=== PATIENT | male | born 2000 | race Two or more races ===

== ENCOUNTER 2024-09-29 18:10 | Emergency (ER) | payer SELFPAY ==
[2024-09-29 18:21] VITALS: BP 115/72; PULSE 94; RESP 18; TEMP 36.5; O2SAT 98
--- NOTE | 2024-09-29 18:42 | XR_ITS ---
Examination: CT abdomen and pelvis without contrast. Coronal 3-D reconstructions. Sagittal 2-D reconstructions. Date and time of exam:September 29, 2024 1850 hours INDICATIONS: Flank pain with right-sided abdominal pain beginning today CTDI: vol (mGy): 5.83 DLP: (mGycm): 309 Technique: Axial images of the abdomen have been obtained, 3 mm slice thickness Intravenous contrast material has not been administered. Low dose protocols were performed. One or more of the following dose reduction techniques were used; automated exposure control, adjustment of the mA and/or KV according to patient size, use of iterative reconstruction technique. Findings: No focal liver or splenic lesions Numerous bilateral renal calculi ranging in size from 2 to 4 mm Minimal left hydronephrosis secondary to 3 mm distal left ureterovesical junction calculus Aorta normal size Contracted gallbladder No pancreatic mass No ascites No bowel obstruction Normal appendix No diverticulitis No prostatomegaly Contracted urinary bladder with minimal urinary bladder wall thickening IMPRESSION: Bilateral renal calculi Minimal left hydronephrosis secondary to 3 mm distal left ureterovesical junction calculus
--- NOTE | 2024-09-29 18:43 | EDRME_ITS ---
Rapid Medical Screening Exam [facility] Arrival date/time: 09/29/24 18:10 24M with no significant PMH presents to ED with 1 day of L flank pain that radiates toward groin, but denies N/V. Possible dysuria. Chief Complaint: Abdominal Pain Vital signs: Vital Signs Temperature 97.7 F 09/29/24 18:21 Pulse Rate 94 09/29/24 18:21 Respiratory Rate 18 09/29/24 18:21 Blood Pressure 115/72 09/29/24 18:21 Pulse Oximetry (%) 98 09/29/24 18:21 Oxygen Delivery Method Room Air 09/29/24 18:21
[2024-09-29 19:10] LABS: Collection Type, Urine Clean Catch; Squamous Epithelial Cell,Urine 0 /hpf (0-5)
[2024-09-29 19:11] LABS: Basophils # (Auto) 0.0 Thou/mm3 (0.0-0.2); Basophils % (Auto) 0 % (0-2.5); Eosinophils # (Auto) 0.0 Thou/mm3 (0.0-0.5); Eosinophils % (Auto) 1 % (0-10); Hematocrit 37.7 % (41.0-53.0); Hemoglobin 12.4 g/dL (13.5-16.0); Immature Granulocytes Auto 0.02 Thou/mm3 (0.00-0.00); Lymphocytes # (Auto) 2.1 Thou/mm3 (1.0-4.8); Lymphocytes % (Auto) 30 % (10-50); Mean Corpuscular HGB Conc 32.9 g/dl (31.0-37.0); Mean Corpuscular Hemoglobin 26.1 pg (25.0-35.0); Mean Corpuscular Volume 79 fL (80-100); Monocytes # (Auto) 0.6 Thou/mm3 (0.0-0.8); Monocytes % (Auto) 9 % (0-12); Neutrophils # (Auto) 4.0 Thou/mm3 (1.8-7.7); Neutrophils % (Auto) 60 % (37-80); Nucleated Red Blood Cell # 0.00 Thou/mm3 (0.00-0.00); Nucleated Red Blood Cell % 0 /100 WBC (0); Platelet Count 194 Thou/mm3 (140-440); RDW Standard Deviation 37.3 fL (35.1-43.9); Red Blood Count 4.75 Miln/mm3 (4.50-5.90); White Blood Count 6.8 Thou/mm3 (3.8-10.6)
[2024-09-29 19:15] LABS: Bacteria,Urine Rare; Bilirubin,Urine Negative (Negative); Blood,Urine 2+ (Negative); Clarity,Urine Clear (Clear/Hazy); Color,Urine Lt-Yellow (Lt Yel-Yel); Culture Indicated,Urine Not Indicated; Glucose, Urine Trace (Negative); Ketones,Urine Negative (Negative); Leukocyte Esterase,Urine Negative (Negative); Nitrite,Urine Negative (Negative); PH,Urine 7.5 (5.0-7.0); Protein,Urine Trace (Neg - Trace); RBC,Urine 177 /hpf (0-3); Specific Gravity,Urine 1.022 (1.001-1.035); Urobilinogen,Urine Negative mg/dL (0.0-1.0); WBC,Urine 2 /hpf (0-5)
[2024-09-29 19:37] LABS: Alanine Aminotransferase 10 U/L (10-49); Albumin, Serum 4.4 gm/dL (3.5-5.0); Albumin/Globulin Ratio 1.9 (1.2-2.2); Alkaline Phosphatase 70 U/L (46-116); Anion Gap 11 (7-16); Aspartate Amino Transferase 18 U/L (0-34); BUN/Creatinine Ratio 10 Ratio (12-20); Bilirubin,Total 1.2 mg/dL (0.3-1.2); Blood Urea Nitrogen 10 mg/dL (9-23); Calcium 10.1 mg/dL (8.3-10.6); Calcium (Corrected) 10.1 mg/dL (8.5-10.1); Carbon Dioxide 23.4 mMol/L (20.0-31.0); Chloride 105 mMol/L (98-107); Creatinine (Component) 1.0 mg/dL (0.6-1.3); Globulin 2.3 gm/dL (2.3-3.5); Glucose 101 mg/dL (74-106); Osmolality,Calculated 276 (275-295); Potassium 3.2 mMol/L (3.4-5.1); Sodium 139 mMol/L (136-145); Total Protein 6.7 gm/dL (5.7-8.2); eGFR > 60 See Note
[2024-09-29 19:50] VITALS: BP 113/52; PULSE 53; RESP 18; TEMP 36.8; O2SAT 98
--- NOTE | 2024-09-29 20:01 | EDNOTE_ITS ---
ED Abdominal Pain RME/HPI General Chief Complaint: Abdominal Pain Stated complaint: Left side abdominal pain today Time seen by provider: 09/29/24 19:39 Arrival date/time: 09/29/24 18:10 RME / HPI RME / HPI narrative: 24-year-old female patient came in for evaluation regarding left flank pain. Onset of symptoms as early today as left flank pain, radiating to the groin, patient denies any vomiting denies any fever denies any diarrhea denies any constipation denies any dysuria or frequency. Patient also denies any hematuria. Related Data Previous Rx's ?Medication ?Instructions ?Recorded ibuprofen 800 mg tablet 800 mg PO Q8H PRN pain #30 t abs 09/29/24 Allergies Allergy/AdvReac Type Severity Reaction Status Date / Time No Known Drug Allergies Allergy Verified 09/29/24 18:17 Review of Systems Review of Systems Narrative Review of Systems: Review of system reviewed and within normal limits except mentioned in HPI ED Exam Narrative Physical exam: VITAL SIGNS: Reviewed. GENERAL APPEARANCE: Alert and interactive, follows commands, no acute distress, HEAD AND FACE: Non-traumatic. ENT: PERRL, pink conjunctivitis, eyelid no trauma, Mucous membrane moist. NECK: Supple, nontender, no nuchal rigidity. CHEST: No tenderness, no crepitus, no paradoxical movement, no retractions. LUNGS: Clear, well ventilated, symmetric, no rales, no wheezing, no ronchi, no stridor, good breath sounds bilaterally. HEART: Regular rate, regular rhythm, no murmur, no gallops. ABDOMEN: Soft, positive bowel sounds, nondistended, no guarding, nontender, no rebound, no masses, RECTAL: Deferred. GENITAL: Deferred. NEUROLOGICAL: Gross motor function intact sensory function intact, Appropriate for age. MUSCULOSKELETAL: low back nontender, full range of motion. EXTREMITIES: Nontender, full range of motion. SKIN: Color pink, dry, no rash, no lacerations, no abrasions, no contusions. LYMPHATICS: Deferred. Course Quality Measures none Orders Category Date Time Status CT abdomen pelvis wo con Stat Exams 09/29/24 18:42 Completed CBC Stat Lab 09/29/24 18:58 Completed CMP [Comprehensive Metabolic Panel] Stat Lab 09/29/24 18:58 Completed Drug Screen,Urine Stat Lab 09/29/24 18:46 Completed Lipase Stat Lab 09/29/24 18:58 Completed Urinalysis, C/S if Indicated Stat Lab 09/29/24 18:46 Completed Urine Culture Stat Lab 09/29/24 18:46 Received Potassium Chloride [K-Dur] Med 09/29/24 21:05 Once 40 meq PO X1 ONE Sodium Chloride 0.9% 1000 ml [Ns] 1,000 ml Med 09/29/24 20:01 Discontinued IV 999 mls/hr Vital Signs Vital signs: Vital Signs Temperature 97.7 F 09/29/24 18:21 Pulse Rate 94 09/29/24 18:21 Respiratory Rate 18 09/29/24 18:21 Blood Pressure 115/72 09/29/24 18:21 Pulse Oximetry (%) 98 09/29/24 18:21 Oxygen Delivery Method Room Air 09/29/24 18:21 Abdominal Pain [facility] Narrative [facility] Narrative:: 24-year-old female patient came in for evaluation regarding left flank pain. Onset of symptoms as early today as left flank pain, radiating to the groin, patient denies any vomiting denies any fever denies any diarrhea denies any constipation denies any dysuria or frequency. Patient also denies any hematuria. Patient's workup all came back unremarkable except for a CT scan that showed 3 mm distal/UVJ junction stone on the left and potassium of 3.2. Patient received IV fluids. Patient received potassium replacement also. Prior to discharge patient is not having any pain. Patient data External records reviewed:: None Clinical information provided by:: none Social determinants that could affect healthcare access:: none Patient has the following chronic illnesses:: None How is presenting disease/condition affected by chronic disease/condition?: no chronic disease Evaluation data The following diagnostics were reviewed and interpreted by me:: lab results and radiology exam(s) Lab and/or radiology exams considered but not ordered:: None Interpretation Summary: See results MDM Medications / Prescriptions Medications or Prescriptions considered but not ordered:: None Medication administrations:: Medication Administration History Potassium Chloride (Potassium Chloride 20 Meq Tabcr) 40 meq PO X1 ONE Stop: 09/29/24 21:06 Discontinued Medications Sodium Chloride (Ns) 1,000 mls @ 999 mls/hr IV .Q1H1M ONE Stop: 09/29/24 21:01 Last Admin: 09/29/24 20:08 Dose: 999 mls/hr Documented By: CEDRICK None Consultations Consultation(s) initiated? (list below): No Diagnosis Differential diagnosis abdominal pain: abdominal pain and calculus of kidney Most likely diagnosis given after review of the tests above:: Ureterolithiasis Admission Indicated Admission indicated?: not indicated Admission Request Was there a request for admission?: No Disposition Plan Disposition Plan: Discharge Discharge Attestation Discharge Attestation: The patient and all family members were given an opportunity to ask questions and understood the discharge instructions. Discharge instructions specifically effects, indications for sooner follow up or return to the emergency department, and the expected course of current diagnosis. Patient condition: Stable Discharge Plan Plan Patient Disposition: HOME (Self Care) Discharge Disposition comment: Stable Prescriptions/Referrals Prescriptions/Med Rec: New ibuprofen 800 mg tablet 800 mg PO Q8H PRN (Reason: pain) Qty: 30 0RF Referrals: No Primary/Family,Physician [Primary Care Provider] - In 1 week Problem List Clinical Impression: Ureterolithiasis Patient/Caregiver Discharge Instructions Discharge Activity: activity as tolerated Education Materials: ED Kidney Stone, Passed Additional Instructions: Thank you for the opportunity for serving you today. You are stable for discharged . You are advised to: Follow-up with your PCP in 1 to 2 days Return to ED for worsening of symptoms Increase oral fluids Take medication as prescribed Print Language: Egyptian Stand Alone Forms: Francoise Award Info., Patient Portal Info Letter LOUISA/LIYA Supervising Physician LOUISA/LIYA Supervising Physician: MD Fredi
[2024-09-29] MEDS: SODIUM CHLORIDE 0.9% 1000 ML 1,000 ML 999 ML IV (20:08)
--- NOTE | 2024-09-29 20:14 | PC.NURSE ---
pt brought in by mom for one day of abdominal and flank pain. pt denies n/v, chest pain, and sob. pt states he does not have any past medical histroy.
[2024-09-29 20:25] LABS: Amphetamine/Methamp Scrn,U Negative (Negative); Barbiturate Screen,Urine Negative (Negative); Benzodiazepines Screen,Urine Negative (Negative); Benzoylecgonine Screen, Ur Negative (Negative); Fentanyl Screen,Urine Negative (Negative); Opiate Screen,Urine Negative (Negative); THC Screen,Urine Negative (Negative)
[2024-09-29 20:32] LABS: Lipase 27 U/L (12-53)
--- NOTE | 2024-09-29 20:50 | PC.NURSE ---
pt states his heart rate runs low
[2024-09-29 21:13] VITALS: BP 109/62; PULSE 51; RESP 18; TEMP 36.6; O2SAT 100
== END 2024-09-29 21:14 | disposition home or self-care (01) ==
PROVIDERS: Physician Assistant; Emergency Provider Emergency Medicine
DX: N20.1 Calculus of ureter (principal)
CPT/HCPCS: 36415; 74176; 80053; 80307; 81001; 83690; 85025; 87086; 96360; 99283; J7030; A9270